=== PATIENT | male | born 1980 | race Hispanic/Latino ===

== ENCOUNTER 2024-03-09 07:48 | Day surgery (SDC) | payer OTHER ==
[~2024-03-09] VITALS: Ht 170.2 cm; Wt 96.6 kg
[~2024-03-09 07:48] MED LIST: CARAFATE1 GM PO; CARAFATE1 GM/10 M1 PO; DEXAMETHASONE SODIUM PHOSPHATE PF 10 MG/ML SDV IV ONE; KETOROLAC TROMETHAMINE 30 MG/ML SDV IV ONE; LACTATED RINGER'S 1,000 ML BAG IV ONE; LIDOCAINE HCL 2% 2ML SDV IV ONE; OMEPRAZOLE DR40 MG; OMEPRAZOLE DR40 MG PO; ONDANSETRON HCl 4 MG/2 ML SDV IV ONE; PROPOFOL 200 MG/20 ML VIAL IV ONE; PROTONIX40 M2 PO; ROCURONIUM BROMIDE 10 MG/ML 5ML VIAL IV ONE; ROSUVASTATIN CAL5 MG PO; SUCCINYLCHOLINE CHLORIDE 20 MG/ML 10ML VIAL IV ONE; SUGAMMADEX SODIUM 200 MG/2 ML SDV IV ONE; VENTOLIN HFA108 MCG IN
[2024-03-09] MEDS ORDERED: LACTATED RINGER'S 1,000 ML IV ONE ×2 (07:51→10:57)
[2024-03-09] MEDS ORDERED: FAMOTIDINE 10MG/ML 2ML SDV IV ONE (07:51)
[2024-03-09] MEDS ORDERED: SODIUM CHLORIDE 0.9% 100 ML IV ONE (07:51)
[2024-03-09] MEDS ORDERED: ceFAZolin Sodium 2 GM/VIAL SDV ONE (07:51)
[2024-03-09] MEDS ORDERED: SODIUM CHLORIDE 20 ML/VIAL SDV ONE (08:04)
[2024-03-09] MEDS ORDERED: BUPIVACAINE 133 MG/10 ML VIAL IJ ONE (08:06)
[2024-03-09] MEDS ORDERED: PERCOCET 5/325M1 TAB PO (10:13)
[2024-03-09] MEDS ORDERED: ACETAMINOPHEN 100 ML IV ONE (10:51)
[2024-03-09] MEDS ORDERED: SODIUM CHLORIDE 1,000 ML BTL IR ONE (10:54)
[2024-03-09] MEDS ORDERED: STERILE WATER FOR IRRIGATION 1,000 ML BTL IR ONE (10:54)
[2024-03-09 11:16] VITALS: BP 132/88
== END 2024-03-09 11:37 | disposition home or self-care (01) | DRG 352 ==
LOC: ORM 07:48
PROVIDERS: ATTEND Surgery
PROC: 0YU50JZ Supplement Right Inguinal Region with Synthetic Substitute, Open Approach (ICD-10-PCS; principal; 2024-03-09)
PROC: 0VBF0ZZ Excision of Right Spermatic Cord, Open Approach (ICD-10-PCS; 2024-03-09)
DX: K40.90 Unilateral inguinal hernia, without obstruction or gangrene, not specified as recurrent (principal); D17.6 Benign lipomatous neoplasm of spermatic cord; K21.9 Gastro-esophageal reflux disease without esophagitis; J45.909 Unspecified asthma, uncomplicated
CPT/HCPCS: C9290; J0131; J0690; J1100